=== PATIENT | female | born 1965 | race African-American/Black ===

== ENCOUNTER 2016-08-07 22:01 | Emergency (ER) | payer OTHER ==
[~2016-08-07] VITALS: Ht 162.6 cm; Wt 98.0 kg
[2016-08-07 22:09] VITALS: Ht 162.6 cm; Wt 98.0 kg
--- NOTE | 2016-08-07 22:46 | ERA ---
ER Documentation Chief Complaint Date/Time DATE: 08/07/16 TIME: 22:46 Chief Complaint abd pain x 2 weeks HPI The patient is a 50-year-old female, presenting to the ER because of epigastric and left upper quadrant abdominal pain intermittently for the last 2 weeks, 7 over 10, no aggravating or relieving factor. She denies similar symptoms previously, denies fever, chills, neck pain, chest pain, dyspnea, nausea, vomiting, diarrhea, constipation, dysuria. She smokes and drinks socially Past medical history: Hypertension Past surgical history: 5 ROS All systems reviewed and are negative except as per history of present illness. Medications Home Meds Active Scripts Tramadol HCl (Tramadol HCl) 50 Mg Tablet, 50 MG PO Q6 Y for PAIN, #20 TAB Prov:ADE IVY MD 08/08/16 Reported Medications Amlodipine Besylate* (Norvasc*) 5 Mg Tablet, 5 MG PO DAILY, TAB 08/07/16 Losartan Potassium* (Cozaar*) 100 Mg Tablet, 100 MG PO DAILY, #30 TAB 08/07/16 Potassium Citrate* (Potassium Citrate* ER) 10 Meq Tablet.sa, 10 MEQ PO DAILY, TAB.SA 08/07/16 Allergies Allergies: Coded Allergies: ibuprofen (Verified Allergy, Unknown, 08/07/16) latex (Verified Allergy, Unknown, 08/07/16) Physical Exam Vitals Vital Signs Date Time Temp Pulse Resp B/P Pulse Ox O2 Delivery O2 Flow Rate FiO2 08/08/16 00:31 98.5 20 138/95 100 08/07/16 22:09 98.2 98 20 154/100 100 Physical Exam Const: No acute distress. Head: Atraumatic. Eyes: Normal Conjunctiva. ENT: Normal External Ears, Nose and Mouth. Neck: Full range of motion. No meningismus. Resp: Clear to auscultation bilaterally. Cardio: Regular rate and rhythm, no murmurs. Abd: Soft, non distended, normal bowel sounds, umbilical hernia, moderate epigastric and left upper quadrant tenderness, no right lower quadrant , right upper quadrant, rigidity, rebound, CVA tenderness Skin: No petechiae or rashes. Back: No midline or flank tenderness. Ext: No cyanosis, or edema. Neur: Awake and alert. No focal deficit Psych: Normal Mood and Affect. Result Diagram: 08/07/16233308/07/164 Results 24 hrs Laboratory Tests Test 08/07/16 23:34 08/07/16 23:58 Alanine Aminotransferase (ALT/SGPT) 44IU/L Albumin 4.7g/dl Albumin/Globulin Ratio 1.17 Alkaline Phosphatase 82IU/L Anion Gap 21 Aspartate Amino Transf (AST/SGOT) 39IU/L Basophils # 0.110^3/ul Basophils % 0.7% Blood Urea Nitrogen 14mg/dl Calcium Level 9.7mg/dl Carbon Dioxide Level 23mmol/L Chloride Level 103mmol/L Creatinine 0.63mg/dl Direct Bilirubin 0.00mg/dl Eosinophils # 0.210^3/ul Eosinophils % 2.6% Globulin 4.00g/dl Glucose Level 93mg/dl Hematocrit 43.5% Hemoglobin 14.5g/dl Indirect Bilirubin 0.0mg/dl Lipase 175U/L Lymphocytes # 2.910^3/ul Lymphocytes % 39.0% Mean Corpuscular Hemoglobin 29.8pg Mean Corpuscular Hemoglobin Concent 33.3g/dl Mean Corpuscular Volume 89.3fl Mean Platelet Volume 10.3fl Monocytes # 0.310^3/ul Monocytes % 4.6% Neutrophils # 3.910^3/ul Neutrophils % 52.8% Nucleated Red Blood Cells # 0.010^3/ul Nucleated Red Blood Cells % 0.0/100WBC Platelet Count 54228^3/UL Potassium Level 4.3mmol/L Red Blood Count 4.8710^6/ul Red Cell Distribution Width 14.6% Sodium Level 143mmol/L Total Bilirubin 0.0mg/dl Total Protein 8.7g/dl White Blood Count 7.410^3/ul Bedside Urine Blood 2+ Bedside Urine Glucose (UA) Negative Bedside Urine Ketones (LAB) Negative Bedside Urine Leukocyte Esterase (L Negative Bedside Urine Nitrite (LAB) Negative Bedside Urine Protein (LAB) Negative Bedside Urine pH (LAB) 5.5 Current Medications Medications (Trade) Dose Ordered Sig/Mario Route PRN Reason Start Time Stop Time Status Last Admin Dose Admin Pantoprazole (Protonix Iv) 40 mg ONCE ONCE IV 08/07/16 23:30 08/07/16 23:31 DC 08/07/16 23:34 Procedures/[address], [place] [address] Radiology Main Line: [phone] DIAGNOSTIC IMAGING REPORT Patient: SEA MILLS : 1965 Age: 50 Sex: F [facility] #: [id number] [facility] [id number] DOS: 08/07/16 2304 Ordering MD: ADE IVY MD Location: E/R Room/Bed: PROCEDURE: CT ABDOMEN/PELVIS WITHOUT CONTRAST CLINICAL INDICATION: 50-year-old female with abdominal pain. TECHNIQUE: The study was performed utilizing a [employer] 64-slice CT scanner. Direct axial sections were obtained through the abdomen and pelvis without the use of intravenous contrast material. Sagittal and coronal reformations were obtained. Automated exposure control and iterative reconstruction techniques were utilized for this examination. The images were reviewed on a PACS workstation. CTD/vol = 21.5 mGy; Total Exam DLP = 1214.6 mGy-cm. COMPARISON: None. FINDINGS: The lung bases are unremarkable. There is no evidence for significant pleural effusion. The liver has a normal size and contour without focal areas of abnormal density. No intrahepatic nor extrahepatic biliary ductal dilatation is seen. The gallbladder demonstrates no wall thickening nor pericholecystic fluid. No biliary stones are evident. The pancreas is without areas of abnormal attenuation. The spleen is identified and has a normal size without abnormal density. The adrenal glands are unremarkable. The kidneys are without abnormal density. No hydroureteronephrosis nor nephroureterolithiasis is evident. The urinary bladder contains urine. There is a small umbilical hernia with an opening of 15 x 12 mm containing fat. There is mild retained stool without evidence for bowel obstruction. Multiple diverticula seen within the ascending and transverse colon without evidence for surrounding inflammatory changes. The appendix is visualized and is without abnormal thickening or surrounding inflammatory reaction. The uterus is mildly elongated with a bulbous appearance. There is no significant free fluid. The aortoiliac vessels are without aneurysmal dilatation. Degenerative changes are present throughout this spine. IMPRESSION: 1. Mild retained stool without obstruction. 2. Ascending and transverse colon diverticulosis. 3. No CT evidence for appendicitis. 4. Small umbilical hernia containing fat. 5. No CT evidence for obstructive uropathy or renal calculi. 6. Degenerative changes within the spine. .Cecilio Knox MD, MD Date Time Electronically viewed and signed by .Cecilio Knox MD, on 08/08/2016 01:29 .M/ CC: ADE IVY MD MEDICAL MAKING DECISION: The patient is a 50-year-old female, presenting with acute abdominal pain, most likely due to umbilical hernia. The differential diagnoses considered include but are not limited to incarcerated/strangulated umbilical hernia, cholelithiasis, cholecystitis, cystitis, pancreatitis, hepatitis, gastritis, peptic ulcer disease, gastric ulcer, appendicitis, diverticulitis, cholangitis, choledocholithiasis, partial small bowel obstruction. Departure Diagnosis: Primary Impression: Umbilical hernia Condition: Good Comments She was discharged with Ultram I discussed the findings with the patient. I advised the patient to follow-up with the primary physician in about 1-2 days, sooner if needed and return if any concern. ADE IVY MD Aug 07, 2016 22:46
[2016-08-07] MEDS ORDERED: POTA10TA18 PO (23:01)
[2016-08-07] MEDS ORDERED: LOSA100T47 PO (23:01)
[2016-08-07] MEDS ORDERED: AMLO5TAB4 PO (23:01)
[2016-08-07] MEDS ORDERED: PANTOPRAZOLE 40 MG INJ IV ONE (23:30)
[2016-08-07 23:58] LABS: URINE BLOOD (Dip) POC 2+ (NEGATIVE)
[2016-08-08 00:08] LABS: ALBUMIN 4.7 g/dl (3.3-4.9)
[2016-08-08 00:09] LABS: POTASSIUM 4.3 mmol/L (3.5-5.1)
[2016-08-08 00:11] LABS: ALBUMIN/GLOBULIN RATIO 1.17; CREATININE 0.63 mg/dl (0.44-1.00); TOTAL PROTEIN 8.7 g/dl (6.1-8.1)
[2016-08-08 00:12] LABS: CALCIUM 9.7 mg/dl (8.4-10.2)
[2016-08-08 00:31] VITALS: BP 138/95; RESP 20; TEMP 98.5
[2016-08-08 00:31] LABS: HEMATOCRIT 43.5 % (37.0-47.0); HEMOGLOBIN 14.5 g/dl (12.0-16.0); MEAN CORPUSCULAR HEMOGLOBIN 29.8 pg (29.0-33.0); MEAN CORPUSCULAR HGB CONC 33.3 g/dl (32.0-37.0); MEAN CORPUSCULAR VOLUME 89.3 fl (82.0-101.0); RED BLOOD COUNT 4.87 10^6/ul (4.20-5.40); UNCORRECTED WBC 7.4 10^3/ul (4.8-10.8); WHITE BLOOD COUNT 7.4 10^3/ul (4.8-10.8)
[2016-08-08 00:32] LABS: BASOPHIL # 0.1 10^3/ul (0.0-0.1); BASOPHILS % 0.7 % (0.0-2.0); EOSINOPHILS # 0.2 10^3/ul (0.0-0.5); EOSINOPHILS % 2.6 % (0.0-7.0); LYMPHOCYTES # 2.9 10^3/ul (0.8-2.9); MEAN PLATELET VOLUME 10.3 fl (7.4-10.4); MONOCYTE # 0.3 10^3/ul (0.3-0.9); MONOCYTES % 4.6 % (0.0-11.0); NEUTROPHIL # 3.9 10^3/ul (1.6-7.5); NEUTROPHILS % 52.8 % (39.0-77.0); PLATELET COUNT 276 10^3/UL (140-440); RED CELL DISTRIBUTION WIDTH 14.6 % (11.5-14.5)
--- NOTE | 2016-08-08 01:29 | RADRPT ---
PROCEDURE: CT ABDOMEN/PELVIS WITHOUT CONTRAST CLINICAL INDICATION: 50-year-old female with abdominal pain. TECHNIQUE: The study was performed utilizing a [employer] V[employer] 64-slice CT scanner. Direct axia l sections were obtained through the abdomen and pelvis without the use of intravenous contrast mate rial. Sagittal and coronal reformations were obtained. Automated exposure control and iterative hugh nstruction techniques were utilized for this examination. The images [facility] CTD/vol = 21.5 mGy; Total Exam DLP = 1214.6 mGy-cm. COMPARISON: None. FINDINGS: The lung bases are unremarkable. There is no evidence for significant pleural effusion. The liver has a normal size and contour without focal areas of abnormal density. No intrahepatic nor extrahepa tic biliary ductal dilatation is seen. The gallbladder demonstrates no wall thickening nor perichole cystic fluid. No biliary stones are evident. The pancreas is without areas of abnormal attenuation. The spleen is identified and has a normal size without abnormal density. The adrenal glands are unr emarkable. The kidneys are without abnormal density. No hydroureteronephrosis nor nephroureterolithi asis is evident. The urinary bladder contains urine. There is a small umbilical hernia with an openi ng of 15 x 12 mm containing fat. There is mild retained stool without evidence for bowel obstructio n. Multiple diverticula seen within the ascending and transverse colon without evidence for surroun ding inflammatory changes. The appendix is visualized and is without abnormal thickening or surrounding inflammatory reaction. The uterus is mildly elongated with a bulbous appearance. There is no significant free fluid. The aortoiliac vessels are without aneurysmal dilatation. Degenerative changes are present throughout this spine. IMPRESSION: 1. Mild retained stool without obstruction. 2. Ascending and transverse colon diverticulosis. 3. No CT evidence for appendicitis. 4. Small umbilical hernia containing fat. 5. No CT evidence for obstructive uropathy or renal calculi. 6. Degenerative changes within the spine. .Cecilio Knox MD, MD Date Time Electronically viewed and signed by .Cecilio Knox MD, MD on 08/08/2016 01:29 .M/
[2016-08-08] MEDS ORDERED: TRAM50TA2 PO (01:50)
== END 2016-08-08 01:50 | disposition home or self-care (01) ==
LOC: E/R 22:01
DX: K42.9 Umbilical hernia without obstruction or gangrene (principal); I10 Essential (primary) hypertension; F17.210 Nicotine dependence, cigarettes, uncomplicated
CPT/HCPCS: 36415; 74176; 80053; 81003; 83690; 85025; 96374; 99285; C9113

== ENCOUNTER 2016-11-25 16:34 | Emergency (ER) | payer OTHER ==
[~2016-11-25] VITALS: Ht 167.6 cm; Wt 88.5 kg
[~2016-11-25 16:34] MED LIST: AMLO5TAB4 PO; LOSA100T47 PO; POTA10TA18 PO; TRAM50TA2 PO
[2016-11-25 16:55] VITALS: Ht 167.6 cm; Wt 88.5 kg
--- NOTE | 2016-11-25 17:51 | ERA ---
ER Documentation Chief Complaint Date/Time DATE: 11/25/16 TIME: 17:51 Chief Complaint Chest discomfort HPI The patient is a 50-year-old female, presenting to the ER because of left sided chest discomfort intermittently for 1 week, worse with movement. She denies any chest discomfort at this time. She was seen by her physician today. She denies fever, chills, headache, neck pain, chest pain with exertion of vomiting or diaphoresis, abdominal pain, vomiting, dysuria, diarrhea, constipation. She smokes half a pack a day, drinks socially Past medical history: Hypertension, hiatal hernia Past surgical history: 5 ROS All systems reviewed and are negative except as per history of present illness. Medications Home Meds Active Scripts Tramadol HCl (Tramadol HCl) 50 Mg Tablet, 50 MG PO Q6 Y for PAIN, #20 TAB Prov:ADE IVY MD 08/08/16 Reported Medications Amlodipine Besylate* (Norvasc*) 5 Mg Tablet, 5 MG PO DAILY, TAB 08/07/16 Losartan Potassium* (Cozaar*) 100 Mg Tablet, 100 MG PO DAILY, #30 TAB 08/07/16 Potassium Citrate* (Potassium Citrate* ER) 10 Meq Tablet.sa, 10 MEQ PO DAILY, TAB.SA 08/07/16 Allergies Allergies: Coded Allergies: ibuprofen (Verified Allergy, Unknown, 08/07/16) latex (Verified Allergy, Unknown, 08/07/16) PMhx/Soc History of Surgery: Yes (c section x5) Anesthesia Reaction: No Hx Neurological Disorder: No Hx Respiratory Disorders: No Hx Cardiac Disorders: Yes (htn) Hx Psychiatric Problems: No Hx Miscellaneous Medical Probl: No Hx Alcohol Use: Yes (occasionally) Hx Substance Use: No Hx Tobacco Use: Yes Physical Exam Vitals Vital Signs Date Time Temp Pulse Resp B/P Pulse Ox O2 Delivery O2 Flow Rate FiO2 11/25/16 18:09 Nasal Cannula 11/25/16 16:55 98.0 96 18 140/108 98 Physical Exam Const: No acute distress. Head: Atraumatic. Eyes: Normal Conjunctiva. ENT: Normal External Ears, Nose and Mouth. Neck: Full range of motion. No meningismus. Resp: Clear to auscultation bilaterally. Cardio: Regular rate and rhythm, no murmurs. Abd: Soft, non distended, normal bowel sounds, non tender. Skin: No petechiae or rashes. Back: No midline or flank tenderness. Ext: No cyanosis, or edema. Neur: Awake and alert. No focal deficit Psych: Normal Mood and Affect. Result Diagram: 11/25/16181911/25/161819 Results 24 hrs Laboratory Tests Test 11/25/16 18:20 White Blood Count 9.510^3/ul Red Blood Count 4.6210^6/ul Hemoglobin 13.5g/dl Hematocrit 41.4% Mean Corpuscular Volume 89.6fl Mean Corpuscular Hemoglobin 29.2pg Mean Corpuscular Hemoglobin Concent 32.6g/dl Red Cell Distribution Width 14.4% Platelet Count 11293^3/UL Mean Platelet Volume 10.2fl Neutrophils % 68.9% Lymphocytes % 24.7% Monocytes % 5.3% Eosinophils % 0.5% Basophils % 0.3% Nucleated Red Blood Cells % 0.0/100WBC Neutrophils # 6.510^3/ul Lymphocytes # 2.310^3/ul Monocytes # 0.510^3/ul Eosinophils # 0.110^3/ul Basophils # 0.010^3/ul Nucleated Red Blood Cells # 0.010^3/ul Prothrombin Time 12.6Sec Prothrombin Time Ratio 1.0 INR International Normalized Ratio 0.94 Activated Partial Thromboplast Time 27.3Sec D-Dimer 324.57ng/ml D-Dimer Comment Sodium Level 138mmol/L Potassium Level 3.4mmol/L Chloride Level 98mmol/L Carbon Dioxide Level 27mmol/L Anion Gap 16 Blood Urea Nitrogen 7mg/dl Creatinine 0.51mg/dl Glucose Level 127mg/dl Calcium Level 10.3mg/dl Troponin I < 0.012ng/ml Current Medications Medications (Trade) Dose Ordered Sig/Mario Route PRN Reason Start Time Stop Time Status Last Admin Dose Admin Potassium Chloride (Klor-Con 20) 20 meq ONCE STAT PO 11/25/16 19:36 11/25/16 19:39 DC Procedures/[place] [id number] Radiology Main Line: [phone] DIAGNOSTIC IMAGING REPORT Patient: SEA MILLS : 1965 Age: 50 Sex: F MR #: [id number] DOS: 11/25/16 1757 Ordering MD: ADE IVY MD Location: E/R Room/Bed: PROCEDURE: Chest x-ray CLINICAL INDICATION: Chest pain TECHNIQUE: Chest single view COMPARISON: None FINDINGS: The heart is normal in size. The pulmonary vessels are normal in caliber. The lungs are clear. The costophrenic angles are sharp. The visualized bony thorax is unremarkable. IMPRESSION: No acute cardiopulmonary disease. RPTAT: HH .Genaro Zuniga MD, MD Date Time Electronically viewed and signed by .Genaro Zuniga MD, MD on 11/25/2016 18:20 .W/ CC: ADE IVY MD EKG: Read by emergency physician Rate/Rhythm: Normal Sinus Rhythm 72 beats/min QRS, ST, T-waves: No ST elevation, no T inversion, sinus arrhythmia, PVC Impression: Abnormal EKG MEDICAL MAKING DECISION: The patient is a 50-year-old female, presenting with acute chest pain however denied any chest pain now, acute hypokalemia. She was treated with potassium chloride 20 mg 1 p.o. with good response The differential diagnoses considered include but are not limited to acute coronary syndrome, acute myocardial infarction, pericarditis, pulmonary embolism , aortic dissection, pneumonia, pleural effusion, pneumothorax, GERD, chest wall pain. I do not suspect ACS in the patient Departure Diagnosis: Primary Impression: Chest pain Additional Impression: Hypokalemia Condition: Good Comments I discussed the findings with the patient. I advised the patient to follow-up with the primary physician in about 1-2 days, sooner if needed and return if any concern. ADE IVY MD November 25, 2016 17:51
--- NOTE | 2016-11-25 18:20 | RADRPT ---
PROCEDURE: Chest x-ray CLINICAL INDICATION: Chest pain TECHNIQUE: Chest single view COMPARISON: None FINDINGS: The heart is normal in size. The pulmonary vessels are normal in caliber. The lungs are clear. Th e costophrenic angles are sharp. The visualized bony thorax is unremarkable. IMPRESSION: No acute cardiopulmonary disease. RPTAT: HH .Genaro Zuniga MD, Date Time Electronically viewed and signed by .Genaro Zuniga MD, MD on 11/25/2016 18:20 .W/
[2016-11-25 18:31] LABS: ADD SCAN DIFF NO
[2016-11-25 18:35] LABS: BASOPHILS % 0.3 % (0.0-2.0); EOSINOPHILS # 0.1 10^3/ul (0.0-0.5); EOSINOPHILS % 0.5 % (0.0-7.0); HEMATOCRIT 41.4 % (37.0-47.0); HEMOGLOBIN 13.5 g/dl (12.0-16.0); LYMPHOCYTES # 2.3 10^3/ul (0.8-2.9); LYMPHOCYTES % 24.7 % (15.0-51.0); MEAN CORPUSCULAR HEMOGLOBIN 29.2 pg (29.0-33.0); MEAN CORPUSCULAR HGB CONC 32.6 g/dl (32.0-37.0); MEAN CORPUSCULAR VOLUME 89.6 fl (82.0-101.0); MEAN PLATELET VOLUME 10.2 fl (7.4-10.4); MONOCYTE # 0.5 10^3/ul (0.3-0.9); MONOCYTES % 5.3 % (0.0-11.0); NEUTROPHIL # 6.5 10^3/ul (1.6-7.5); NEUTROPHILS % 68.9 % (39.0-77.0); PLATELET COUNT 281 10^3/UL (140-415); RED BLOOD COUNT 4.62 10^6/ul (4.20-5.40); RED CELL DISTRIBUTION WIDTH 14.4 % (11.5-14.5); WHITE BLOOD COUNT 9.5 10^3/ul (4.8-10.8)
[2016-11-25 19:02] LABS: CHLORIDE 98 mmol/L (97-110); SODIUM 138 mmol/L (135-144)
[2016-11-25 19:03] LABS: POTASSIUM 3.4 mmol/L (3.5-5.1)
[2016-11-25 19:04] LABS: INR 0.94; PROTIME 12.6 Sec (12.2-14.2)
[2016-11-25 19:05] LABS: CREATININE 0.51 mg/dl (0.44-1.00); PARTIAL THROMBOPLASTIN TIME 27.3 Sec (25.0-35.0)
[2016-11-25 19:06] LABS: ANION GAP 16 (8-16); BLOOD UREA NITROGEN 7 mg/dl (7-20); CALCIUM 10.3 mg/dl (8.4-10.2); CARBON DIOXIDE 27 mmol/L (21-31); GLUCOSE 127 mg/dl (70-220)
[2016-11-25 19:08] LABS: D-DIMER 324.57 ng/ml (<460)
[2016-11-25 19:26] LABS: TROPONIN-I < 0.012 ng/ml (0.00-0.12)
[2016-11-25] MEDS ORDERED: POTASSIUM CHLORIDE (SR) 20 MEQ TAB PO STA (19:36)
[2016-11-25 19:51] VITALS: BP 150/90; PULSE 75; RESP 22; TEMP 98.6
== END 2016-11-25 19:53 | disposition home or self-care (01) ==
LOC: E/R 16:34
DX: R07.89 Other chest pain (principal); E87.6 Hypokalemia; I10 Essential (primary) hypertension; Z87.891 Personal history of nicotine dependence
CPT/HCPCS: 36415; 71010; 80048; 84484; 85025; 85378; 85610; 85730; 93005

== ENCOUNTER 2019-01-03 17:16 | Inpatient (IN) | payer OTHER ==
[~2019-01-03] VITALS: Ht 170.2 cm; Wt 95.5 kg
[~2019-01-03 17:16] MED LIST changes: +LOSA100T3 PO; -LOSA100T47 PO
[2019-01-03 17:25] VITALS: Ht 170.2 cm; Wt 95.5 kg
[2019-01-03] MEDS ORDERED: morphine 4 MG/ML VIAL IV STA (17:28)
[2019-01-03] MEDS ORDERED: SOD CHLORIDE 0.9% 500 ML IV STA (17:28)
[2019-01-03] MEDS ORDERED: ONDANSETRON 4 MG INJ IV STA (17:28)
--- NOTE | 2019-01-03 17:32 | ERD ---
ER Documentation Chief Complaint Chief Complaint SEVERE 10/10 LEFT KNEE PAIN AFTER FALLING OFF OF [employer] TODAY HPI 53-year-old woman brought in by EMS with pneumatic splint to the right lower extremity complaining of right knee pain after falling off of the scooter. Episode was witnessed and she did not lose consciousness and recalls the entire incident. She states she fell onto her right knee and could not ambulate after the fall. Patient denies head or neck injury, no chest pain or shortness of breath, no paresis or paresthesias. Patient was transported here without further complications. ROS All systems reviewed and are negative except as per history of present illness. Medications Home Meds Active Scripts Tramadol HCl (Tramadol HCl) 50 Mg Tablet, 50 MG PO Q6 PRN for PAIN, #20 TAB Prov:ADE IVY MD 08/08/16 Reported Medications Amlodipine Besylate* (Norvasc*) 5 Mg Tablet, 5 MG PO DAILY, TAB 08/07/16 Losartan Potassium* (Cozaar*) 100 Mg Tablet, 100 MG PO DAILY, #30 TAB 08/07/16 Potassium Citrate* (Potassium Citrate* ER) 10 Meq Tablet.sa, 10 MEQ PO DAILY, TAB.SA 08/07/16 Allergies Allergies: Coded Allergies: ARB-Angiotensin Receptor Antagonist (Verified Allergy, Severe, ANAPYLAXIS, 01/03/19) ibuprofen (Verified Allergy, Unknown, 08/07/16) latex (Verified Allergy, Unknown, 08/07/16) PMhx/Soc Hypertension, obesity History of Surgery: Yes (c section x5) Anesthesia Reaction: No Hx Neurological Disorder: No Hx Respiratory Disorders: No Hx Cardiac Disorders: Yes (htn) Hx Psychiatric Problems: No Hx Miscellaneous Medical Probl: Yes (HERNIA) Hx Alcohol Use: Yes (occasionally) Hx Substance Use: No Hx Tobacco Use: Yes FmHx Family History: No diabetes Physical Exam Vitals Vital Signs Date Temp Pulse Resp B/P (MAP) Pulse Ox O2 O2 Flow FiO2 Time Delivery Rate 01/03/19 98 18 123/76 99 Room Air 18:37 (92) 01/03/19 98.6 95 16 137/91 95 17:25 (106) Physical Exam GENERAL: Well-developed, well-nourished, well-hydrated, in no apparent distress, looks nontoxic in appearance HEENT: Moist mucous membranes, pink conjunctiva, no cervical spine tenderness or step-off deformities, no goiter, no jaundice or icterus, extraocular movements intact without pain. CARDIAC: Regular rate and rhythm, no murmurs rubs or gallops LUNGS: Clear bilaterally no wheezing crackles or stridor SKIN: Warm and dry to touch, no abrasions, contusions, or hematomas, no lacerations, no ecchymosis, no target lesions, and without ulcers EXTREMITIES: No clubbing cyanosis or edema, calves are bilaterally symmetrical, no Homans sign, no popliteal cord sign. Distal pulses equal and bilateral Result Diagram: 01/03/19 1740 01/03/191739 Results 24 hrs Laboratory Tests Test 01/03/19 17:40 White Blood Count 11.3 10^3/ul Red Blood Count 4.89 10^6/ul Hemoglobin 13.8 g/dl Hematocrit 42.5 % Mean Corpuscular Volume 86.9 fl Mean Corpuscular Hemoglobin 28.2 pg Mean Corpuscular Hemoglobin Concent 32.5 g/dl Red Cell Distribution Width 14.5 % Platelet Count 337 10^3/UL Mean Platelet Volume 10.3 fl Immature Granulocytes % 0.400 % Neutrophils % 60.4 % Lymphocytes % 31.2 % Monocytes % 5.9 % Eosinophils % 1.5 % Basophils % 0.6 % Nucleated Red Blood Cells % 0.0 /100WBC Immature Granulocytes # 0.040 10^3/ul Neutrophils # 6.8 10^3/ul Lymphocytes # 3.5 10^3/ul Monocytes # 0.7 10^3/ul Eosinophils # 0.2 10^3/ul Basophils # 0.1 10^3/ul Nucleated Red Blood Cells # 0.0 10^3/ul Prothrombin Time 12.1 Sec Prothrombin Time Ratio 0.9 INR International Normalized Ratio 0.89 Activated Partial Thromboplast Time 27.2 Sec Sodium Level 142 mmol/L Potassium Level 3.9 mmol/L Chloride Level 105 mmol/L Carbon Dioxide Level 23 mmol/L Anion Gap 14 Blood Urea Nitrogen 13 mg/dl Creatinine 0.72 mg/dl Est Glomerular Filtrat Rate mL/min > 60 mL/min Glucose Level 124 mg/dl Calcium Level 10.5 mg/dl Current Medications Medications Dose Sig/Mario Start Time Status Last (Trade) Ordered Route PRN Stop Time Admin Dose Reason Admin Sodium 500 ml @ Q1H STAT 01/03/19 DC 01/03/19 Chloride 500 mls/hr IV 17:28 17:39 01/03/19 18:27 Morphine 4 mg ONCE STAT 01/03/19 DC 01/03/19 Sulfate IV 17:28 17:39 (morphine) 01/03/19 17:30 Ondansetron 4 mg ONCE STAT 01/03/19 DC 01/03/19 HCl (Zofran IV 17:28 17:39 Inj) 01/03/19 17:30 1 mg ONCE STAT 01/03/19 DC 01/03/19 Hydromorphone IV 18:00 18:28 HCl 01/03/19 18:01 (Dilaudid) Procedures/MDM IV line was established patient was placed on devulcanizer loader rhythm strip revealed a sinus rhythm at about 80 bpm with upright P and T waves. Patient was afebrile I administered 500 cc normal saline IV, morphine 4 mg IV, Zofran 4 mg IV. Patient also received hydromorphone 1 mg IV x1 for continued pain X-ray right knee 3V Interpreted by me: Bones: Comminuted displaced lateral tibial plateau fracture. Joints: No dislocation Foreign body: None EKG performed, read by me revealed a normal sinus rhythm 89 bpm, normal axis, narrow QRS complex, no concerning ST elevations or depressions noted. Patient was placed in a knee immobilizer to the right lower extremity for comfort and supportive measures. Splint Assessment: Neurovascularly intact post splint placement with good fit. I spoke to Dr. Hughes orthopedic surgeon optical effects layout person regarding patient's presentation, symptomatology, x-ray findings. Recommended admission for surgical consultation and evaluation. CBC and electrolytes are unremarkable, coagulation profile normal. Patient will be admitted to [facility] for continued medical management and orthopedic consultation Departure Diagnosis: Primary Impression: Tibial plateau fracture, right Encounter type: initial encounter Fracture type: closed Qualified Codes: S82.141A - Displaced bicondylar fracture of right tibia, initial encounter for closed fracture Condition: RADHA Robbins MD Jan 03, 2019 17:32
[2019-01-03] MEDS ORDERED: HYDROmorphONE 2 MG/ML SYG IV STA (18:00)
[2019-01-03] MEDS ORDERED: KETOROLAC 15 MG INJ IV STA (19:21)
[2019-01-03] MEDS ORDERED: NACL 0.9% 3 ML SYG IV SCH (19:30)
[2019-01-03] MEDS ORDERED: ACETAMINOPHEN 325 MG TAB PO PRN (19:30)
[2019-01-03] MEDS ORDERED: morphine 2 MG INJ IV PRN (19:30)
[2019-01-03] MEDS ORDERED: ONDANSETRON 4 MG INJ IV PRN (19:30)
[2019-01-03] MEDS ORDERED: BISACODYL 10 MG SUPP PR PRN (19:30)
[2019-01-03] MEDS ORDERED: hydrALAzine 20 MG INJ IV PRN (19:30)
[2019-01-03 20:53] VITALS: BP 144/89; PULSE 96; RESP 18
[2019-01-03] MEDS: HYDROCODONE/APAP (5/325) TAB PO PRN (22:24)
[2019-01-03] MEDS: NICOTINE (21 MG/24 HR) PATCH TRANSDERM SCH (22:30)
[2019-01-04 01:22] VITALS: BP 139/85; PULSE 94; RESP 18
[2019-01-04] MEDS: HYDROmorphONE 1 MG/ML SYG IV PRN ×6 (03:41→23:05)
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
[2019-01-04 07:54] VITALS: BP 141/92; PULSE 82; RESP 19
[2019-01-04] MEDS: NICOTINE (21 MG/24 HR) PATCH TRANSDERM SCH (08:40)
[2019-01-04] MEDS: HYDROCODONE/APAP (5/325) TAB PO PRN (08:40)
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
[2019-01-04] MEDS ORDERED: hydrALAzine 20 MG INJ IV PRN (12:00)
[2019-01-04] MEDS: AMLODIPINE 5 MG TAB PO SCH (12:01)
[2019-01-04] MEDS: OXYCODONE/ACETAMINOPHEN (5/325) TAB PO PRN ×2 (12:01→15:53)
[2019-01-04] MEDS: ENOXAPARIN 40 MG/0.4 ML SYG SC SCH (12:01)
[2019-01-04 15:23] VITALS: BP 138/87; PULSE 76; RESP 19
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
--- NOTE | 2019-01-04 17:06 | RADRPT ---
Echocardiogram Report Patient Name: SEA MILLSPatient ID: [id number] : 1965 (53y 1m)Study Date: 01/04/2019 8:19:09 AM Gender: FAccession #: [id number] Tech: Cali Hsu [facility] Location: [address] Ref.Physician: RADHA GONZALEZ Height(Cm): BSA: Weight(Kg): Quality: AdequateOrder Physician: RADHA GONZALEZ Account #: Procedures: Echocardiographic Report: Transthoracic echocardiogram with complete 2D, M-Mode, and doppler examination. Indications: Pre-op. Measurements: 2D/M Mode Doppler Measurement Value Normal Range Measurement Value Normal Range LVIDd 2D 4.2 [ 3.8 - 5.2 ] cm AV Peak Jeffrey 1.1 [ 100.0 - 170.0 ] cm/sec LVIDs 2D 3.0 [ 2.2 - 3.5 ] cm AV Peak PG 5.0 [ 2.0 - 9.0 ] mmHg LVPWd 2D 0.9 [ 0.6 - 0.9 ] cm LVOT Peak Jeffrey 0.9 [ 70.0 - 110.0 ] cm/sec IVSd 2D 1.6 [ 0.6 - 0.9 ] cm LVOT Peak PG 3.0 [ 2.0 - 6.0 ] mmHg AoR Diam 2D 3.0 [ 2.3 - 3.1 ] cm MV E Peak Jeffrey 0.8 [ 60.0 - 130.0 ] cm/sec EDV 2D 79.9 [ 46.0 - 106.0 ] ml MV A Peak Jeffrey 0.7 [ 100.0 - 120.0 ] cm/sec ESV 2D 35.3 [ 14.0 - 42.0 ] ml MV E/A 1.1 [ 0.8 - 1.5 ] ratio EF 2D 55.8 [ 54.0 - 74.0 ] percent MV Decel Time 232 [ 104 - 258 ] msec LA Dimen 2D 3.1 [ 2.7 - 3.8 ] cm Lat E` Jeffrey 0.1 [ 10.0 - 15.0 ] cm/sec Lateral E/E` 11.6 [ 1.0 - 2.0 ] ratio Med E` Jeffrey 0.1 cm/sec MV E/A 1.1 [ 0.8 - 1.5 ] ratio TR Peak Jeffrey 2.6 [ 100.0 - 280.0 ] cm/sec TR Peak PG 27.0 mmHg RVSP 37.0 [ 10.0 - 36.0 ] mmHg Findings: Left Ventricle: Normal left ventricular systolic function. Normal left ventricular cavity size. Sigmoid septum. Ejection fraction is visually estimated at 55 %. Tissue Doppler/Mitral Doppler indices are consistent with impaired relaxation (Stage I diastolic dysfunction). Right Ventricle: Normal right ventricular size. Normal right ventricular systolic function. Left Atrium: The left atrium is normal in size. Right Atrium: The right atrium is normal in size. Mitral Valve: Mild mitral leaflet calcification. Mild mitral annular calcification. Trace mitral regurgitation. Aortic Valve: No significant aortic stenosis or insufficiency. Aortic cusps appear mildly calcified. Tricuspid Valve: Normal appearance of the tricuspid valve. The estimated Peak RVSP is 37 mmHg. There is mild tricuspid regurgitation. Pericardium: Normal pericardium with no significant pericardial effusion. There is an anterior echo free space consistent with epicardial fat pad. Left pleural effusion seen. Aorta: Normal aortic root. IVC: Normal size with poor respiratory collapse consistent with elevated right atrial pressure. Conclusions: Normal left ventricular systolic function. Normal left ventricular cavity size. Sigmoid septum. Ejection fraction is visually estimated at 55 %. Tissue Doppler/Mitral Doppler indices are consistent with impaired relaxation (Stage I diastolic dysfunction). Mild mitral leaflet calcification. Mild mitral annular calcification. Trace mitral regurgitation. No significant aortic stenosis or insufficiency. Aortic cusps appear mildly calcified. Normal appearance of the tricuspid valve. The estimated Peak RVSP is 37 mmHg. There is mild tricuspid regurgitation. Electronically Signed By: Rhys Cade 2019-01-04 17:05:54 PDT
[2019-01-04] MEDS ORDERED: traZODone 50 MG TAB PO ONE (20:00)
[2019-01-04] MEDS: ATORVASTATIN 10 MG TAB PO SCH (20:11)
[2019-01-04] MEDS: OXYCODONE/ACETAMINOPHEN (10/325) TAB PO PRN (20:11)
[2019-01-04 20:21] VITALS: BP 155/98; PULSE 99; RESP 19
[2019-01-05] MEDS: OXYCODONE/ACETAMINOPHEN (10/325) TAB PO PRN ×4 (01:50→20:49)
[2019-01-05 02:21] VITALS: BP 138/75; PULSE 109; RESP 18
[2019-01-05] MEDS: HYDROmorphONE 1 MG/ML SYG IV PRN ×3 (05:19→18:45)
[2019-01-05 07:28] VITALS: BP 141/68; PULSE 78; RESP 19
[2019-01-05] MEDS: AMLODIPINE 5 MG TAB PO SCH (09:00)
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
[2019-01-05] MEDS: NICOTINE (21 MG/24 HR) PATCH TRANSDERM SCH (09:45)
[2019-01-05] MEDS: ENOXAPARIN 40 MG/0.4 ML SYG SC SCH (12:30)
[2019-01-05 15:06] VITALS: BP 130/78; PULSE 97; RESP 19
--- NOTE | 2019-01-05 18:05 | PREAC ---
Date/Time of Note Date/Time of Note DATE: 01/05/19 TIME: 18:04 Anesthesia Eval and Record Evaluation Time Pre-Procedure Interview DATE: 01/05/19 TIME: 18:04 Age 53 Sex female NPO: 8 hrs Preoperative diagnosis TIBIAL PLATEAU FRACTURE , RIGHT KNEE Planned procedure ORIF TIBIAL PLATEAU FRACTURE , RIGHT KNEE Past Medical History Past Medical History: Includes Cardio: HTN, Dyslipidemia Pulm: COPD GI: Obesity Surgery & Anesthesia Issues No known issue Meds Anticoagulation: No Beta Hay within 24 hr: No Reason Beta Hay not given: Pt. not on B-Hay, Bradycarida Active Scripts Tramadol HCl (Tramadol HCl) 50 Mg Tablet, 50 MG PO Q6 PRN for PAIN, #20 TAB Prov:ADE IVY MD 08/08/16 Reported Medications Amlodipine Besylate* (Norvasc*) 5 Mg Tablet, 5 MG PO DAILY, TAB 08/07/16 Potassium Citrate* (Potassium Citrate* ER) 10 Meq Tablet.sa, 10 MEQ PO DAILY, TAB.SA 08/07/16 Discontinued Reported Medications Losartan Potassium* (Cozaar*) 100 Mg Tablet, 100 MG PO DAILY, #30 TAB 08/07/16 Current Medications IV Flush (NS 3 ml) 3 ml PER PROTOCOL IV ; Start 01/03/19 at 19:30 Ondansetron HCl (Zofran Inj) 4 mg Q6H PRN IV NAUSEA/VOMITING; Start 01/03/19 at 19:30 Acetaminophen (Tylenol Tab) 650 mg Q6H PRN PO .PAIN 1-3 OR TEMP; Start 01/03/19 at 19:30 Bisacodyl (Dulcolax Supp) 10 mg DAILY PRN [place] .CONSTIPATION; Start 01/03/19 at 19:30 Nicotine (Nicoderm 21 Mg/ 24hr) 1 patch DAILY TRANSDERM Last administered on 01/05/19at 09:45; Admin Dose 1 PATCH; Start 01/03/19 at 22:30 Hydromorphone HCl (Dilaudid) 1 mg Q3H PRN IV SEVERE PAIN LEVEL 7-10 Last administered on 01/05/19at 12:42; Admin Dose 1 MG; Start 01/04/19 at 02:00 Atorvastatin Calcium (Lipitor) 10 mg HS PO Last administered on 01/04/19at 20:11; Admin Dose 10 MG; Start 01/04/19 at 21:00 Amlodipine Besylate (Norvasc) 5 mg DAILY PO Last administered on 01/04/19at 12:01; Admin Dose 5 MG; Start 01/04/19 at 12:00 Hydralazine HCl (Apresoline) 10 mg Q6H PRN IV sbp>160; Start 01/04/19 at 12:00 Enoxaparin Sodium (Lovenox) 40 mg DAILY SC Last administered on 01/05/19at 12:30; Admin Dose 40 MG; Start 01/04/19 at 12:00 Oxycodone/ Acetaminophen (Endocet (10/ 325)) 1 tab Q4H PRN PO MODERATE PAIN LEVEL 4-6 Last administered on 01/05/19at 14:57; Admin Dose 1 TAB; Start 01/04/19 at 20:00 Sodium Chloride 1,000 ml @ 50 mls/hr Q20H IV ; Start 01/06/19 at 00:00 Meds reviewed: Yes Allergies Coded Allergies: ARB-Angiotensin Receptor Antagonist (Verified Allergy, Severe, ANAPYLAXIS, 01/03/19) ibuprofen (Verified Allergy, Unknown, 08/07/16) latex (Verified Allergy, Unknown, 08/07/16) Allergies Reviewed: Yes Labs/Studies Labs Reviewed: Reviewed by anesthesiologist Result Diagram: 01/05/198 01/05/19427 Laboratory Tests 01/05/19 04:28 test: N/A Studies: ECG (sr), CXR (Elevated right hemidiaphragm. Heart within normal limits in size. No evidence of pulmonary vascular congestion acute lung consolidation pleural effusions and pneumothorax.), 2D Echo (EF 55%) Pre-procedure Exam Last vitals Vital Signs Date Temp Pulse Resp B/P (MAP) Pulse Ox O2 O2 Flow FiO2 Time Delivery Rate 01/05/19 97.2 97 19 130/78 96 15:06 (95) 01/05/19 Room Air 07:28 Airway: Adequate mouth opening Mallampati: Mallampati II Teeth: Normal Lung: Normal Heart: Normal ASA Physical Status ASA physical status: 3 Emergency: None Planned Anesthetic General/MAC: ETT Pre-operative Attestations Prior to commencing anesthesia and surgery, the patient was re-evaluated, there was verification of: *The patient's identity *The results of appropriate recent lab work and preoperative vital signs *The above evaluation not changing prior to induction *Anesthetic plan, risk benefits, alternative and complications discussed with patient/family; questions answered; patient/family understands, accepts and wishes to proceed. ROLDAN CISSE Jan 05, 2019 18:05
[2019-01-05 19:25] VITALS: BP 133/82; PULSE 109; RESP 18
[2019-01-05] MEDS: ATORVASTATIN 10 MG TAB PO SCH (20:49)
[2019-01-06] VITALS (15 sets, daily range): BP systolic 107–153; BP diastolic 67–95; PULSE 98–108; RESP 15–21
[2019-01-06] MEDS: HYDROmorphONE 1 MG/ML SYG IV PRN ×4 (00:36→11:55)
--- NOTE | 2019-01-06 06:31 | PN ---
DATE: 01/05/2019 Medically cleared for surgery. Scheduled for open reduction and internal fixation of the tibial plat eau fracture of the right knee around 2:00 p.m. on 01/06/2019. Dictated By: ANGÉLICA CRUZ/NTS Conf#: [id number] DID#: [id number] CC: LALA PEREZ MD;*EndCC*
[2019-01-06] MEDS: ENOXAPARIN 40 MG/0.4 ML SYG SC SCH (07:43)
[2019-01-06] MEDS: AMLODIPINE 5 MG TAB PO SCH (08:24)
[2019-01-06] MEDS: NICOTINE (21 MG/24 HR) PATCH TRANSDERM SCH (08:24)
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
[2019-01-06] MEDS ORDERED: POLYMYXIN/BACITRACIN 1L IRRIG ONE (14:54)
--- NOTE | 2019-01-06 15:22 | HPN ---
Date/Time of Note Date/Time of Note DATE: 01/06/19 TIME: 15:22 Interval H&P Admission Note Pt. seen H&P reviewed: No system changes MADHURI ESQUIVEL MD Jan 06, 2019 15:22
--- NOTE | 2019-01-06 15:23 | PREAC ---
Date/Time of Note Date/Time of Note DATE: 01/06/19 TIME: 15:21 Anesthesia Eval and Record Evaluation Time Pre-Procedure Interview DATE: 01/06/19 TIME: 15:21 Age 53 Sex female NPO: 8 hrs Preoperative diagnosis R. Knee Fx Planned procedure ORIF R. Knee Past Medical History Past Medical History: Includes Cardio: HTN Pulm: Smoking Hx GI: Obesity Surgery & Anesthesia Issues No known issue Meds Anticoagulation: No Beta Hay within 24 hr: No Reason Beta Hay not given: Pt. not on B-Hay Active Scripts Tramadol HCl (Tramadol HCl) 50 Mg Tablet, 50 MG PO Q6 PRN for PAIN, #20 TAB Prov:ADE IVY MD 08/08/16 Reported Medications Amlodipine Besylate* (Norvasc*) 5 Mg Tablet, 5 MG PO DAILY, TAB 08/07/16 Potassium Citrate* (Potassium Citrate* ER) 10 Meq Tablet.sa, 10 MEQ PO DAILY, TAB.SA 08/07/16 Discontinued Reported Medications Losartan Potassium* (Cozaar*) 100 Mg Tablet, 100 MG PO DAILY, #30 TAB 08/07/16 Current Medications IV Flush (NS 3 ml) 3 ml PER PROTOCOL IV ; Start 01/03/19 at 19:30 Ondansetron HCl (Zofran Inj) 4 mg Q6H PRN IV NAUSEA/VOMITING; Start 01/03/19 at 19:30 Acetaminophen (Tylenol Tab) 650 mg Q6H PRN PO .PAIN 1-3 OR TEMP; Start 01/03/19 at 19:30 Bisacodyl (Dulcolax Supp) 10 mg DAILY PRN [place] .CONSTIPATION; Start 01/03/19 at 19:30 Nicotine (Nicoderm 21 Mg/ 24hr) 1 patch DAILY TRANSDERM Last administered on 01/06/19at 08:24; Admin Dose 1 PATCH; Start 01/03/19 at 22:30 Hydromorphone HCl (Dilaudid) 1 mg Q3H PRN IV SEVERE PAIN LEVEL 7-10 Last administered on 01/06/19at 11:55; Admin Dose 1 MG; Start 01/04/19 at 02:00 Atorvastatin Calcium (Lipitor) 10 mg HS PO Last administered on 01/05/19at 20:49; Admin Dose 10 MG; Start 01/04/19 at 21:00 Amlodipine Besylate (Norvasc) 5 mg DAILY PO Last administered on 01/06/19at 08:24; Admin Dose 5 MG; Start 01/04/19 at 12:00 Hydralazine HCl (Apresoline) 10 mg Q6H PRN IV sbp>160; Start 01/04/19 at 12:00 Enoxaparin Sodium (Lovenox) 40 mg DAILY SC Last administered on 01/05/19at 12:30; Admin Dose 40 MG; Start 01/04/19 at 12:00 Oxycodone/ Acetaminophen (Endocet (10/ 325)) 1 tab Q4H PRN PO MODERATE PAIN LEVEL 4-6 Last administered on 01/05/19at 20:49; Admin Dose 1 TAB; Start 01/04/19 at 20:00 Sodium Chloride 1,000 ml @ 50 mls/hr Q20H IV Last administered on 01/06/19at 00:35; Admin Dose 50 MLS/HR; Start 01/06/19 at 00:00 Meds reviewed: Yes Allergies Coded Allergies: ARB-Angiotensin Receptor Antagonist (Verified Allergy, Severe, ANAPYLAXIS, 01/03/19) ibuprofen (Verified Allergy, Unknown, 08/07/16) latex (Verified Allergy, Unknown, 08/07/16) Allergies Reviewed: Yes Labs/Studies Labs Reviewed: Reviewed by anesthesiologist Result Diagram: 01/06/19 0437 01/06/19 0437 Laboratory Tests 01/06/19 04:37 test: Negative Pre-procedure Exam Last vitals Vital Signs Date Temp Pulse Resp B/P (MAP) Pulse Ox O2 O2 Flow FiO2 Time Delivery Rate 01/06/19 98.6 104 16 125/74 96 Room Air 14:02 (91) Airway: Adequate mouth opening Mallampati: Mallampati II Teeth: Normal Lung: Normal Heart: Normal ASA Physical Status ASA physical status: 2 Emergency: None Planned Anesthetic General/MAC: ETT Pre-operative Attestations Prior to commencing anesthesia and surgery, the patient was re-evaluated, there was verification of: *The patient's identity *The results of appropriate recent lab work and preoperative vital signs *The above evaluation not changing prior to induction *Anesthetic plan, risk benefits, alternative and complications discussed with patient/family; questions answered; patient/family understands, accepts and wishes to proceed. LORAINE DICKSON MD Jan 06, 2019 15:23
[2019-01-06] MEDS ORDERED: SUCCINYLCHOLINE CHLORIDE 100 MG/5 ML SYG IV ONE (15:29)
[2019-01-06] MEDS ORDERED: ROCURONIUM 50 MG INJ ONE (15:29)
[2019-01-06] MEDS ORDERED: PROPOFOL 20 ML ONE (15:29)
[2019-01-06] MEDS ORDERED: CEFAZOLIN 1 GM INJ ONE (15:29)
[2019-01-06] MEDS ORDERED: ONDANSETRON 4 MG INJ ONE (15:30)
[2019-01-06] MEDS ORDERED: MIDAZOLAM 1 MG/ML 2 ML INJ ONE (15:30)
[2019-01-06] MEDS ORDERED: ONDANSETRON 4 MG INJ IV PRN (17:00)
[2019-01-06] MEDS ORDERED: FENTAnyl 50 MCG/ML VIAL IV PRN (17:00)
[2019-01-06] MEDS ORDERED: HYDROmorphONE 1 MG/5 ML IV SYRINGE IV PRN (17:00)
[2019-01-06] MEDS ORDERED: FENTAnyl 50 MCG/ML VIAL ONE (19:25)
[2019-01-06] MEDS ORDERED: LABETALOL HCL 20MG INJ ONE (19:31)
--- NOTE | 2019-01-06 20:05 | PAC ---
Date/Time of Note Date/Time of Note DATE: 01/06/19 TIME: 20:05 Post-Anesthesia Notes Post-Anesthesia Note Last documented vital signs Vital Signs Date Temp Pulse Resp B/P (MAP) Pulse Ox O2 O2 Flow FiO2 Time Delivery Rate 01/06/19 98.6 104 16 125/74 96 Room Air 14:02 (91) Activity: WNL Respiratory function: WNL Cardiovascular function: WNL Mental status: Baseline Pain reasonably controlled: Yes Hydration appropriate: Yes Nausea/Vomiting absent: Yes LORAINE DICKSON MD Jan 06, 2019 20:05
[2019-01-06] MEDS: HYDROmorphONE 1 MG/5 ML IV SYRINGE IV PRN ×2 (20:23→20:43)
[2019-01-06] MEDS ORDERED: SOD CHLORIDE 0.9% 1,000 ML IV SCH ×2 (20:24)
[2019-01-06] MEDS ORDERED: NACL 0.9% 3 ML SYG IV SCH (20:30)
--- NOTE | 2019-01-06 20:59 | SIPON ---
Date/Time of Note Date/Time of Note DATE: 01/06/19 TIME: 20:47 Operative Report Preoperative Diagnosis tibial plateou fracture of Rt. knee Postoperative Diagnosis same Operation/Procedure Performed O.R.I.F. of tibial plateau fracture of Rt. 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
[2019-01-06] MEDS: ATORVASTATIN 10 MG TAB PO SCH (21:00)
[2019-01-06] MEDS ORDERED: CEFAZOLIN 2 GM/50 ML (PMX) 50 ML IVPB SCH (22:00)
[2019-01-06] MEDS: morphine 2 MG INJ IV PRN (23:20)
[2019-01-06] MEDS: CEFAZOLIN 2 GM/50 ML (PMX) 50 ML IVPB SCH (23:51)
--- NOTE | 2019-01-07 02:13 | OPR ---
DATE OF OPERATION: 01/06/2019 PREOPERATIVE DIAGNOSIS: The tibial plateau fracture of the right knee. POSTOPERATIVE DIAGNOSIS: Tibial plateau fracture of the right knee. PROCEDURE PERFORMED: Open reduction and internal fixation of the tibial plateau fracture of the righ t knee with bone grafting. ANESTHESIA: General anesthesia. SURGEON: Angélica Esquivel MD PROCEDURE AND FINDINGS: Under general anesthesia, the patient was placed in supine position. A tour niquet was placed over the proximal portion of the right thigh and was inflated up to 300 mmHg prior to the procedure. Usual prep and drape was done exposing the right knee. Right knee joint and proxi mal right tibia was approached through the longitudinal midline incision. This incision was extended as long as needed as the procedure is advancing. The proximal tibia and tibial plateau and intraarti cular aspect of the proximal tibia was exposed and exploration revealed the following: There was an extensive fracture involving both medial and lateral tibial plateau with extension to proximal tibia. There was rather unusual depression of the tibial plateau in the intercondylar area with a defect c reated. There was a meniscal tear in the anterior aspect of the lateral tibia following the procedur es were carried out. First, the area was exposed by blunt and sharp dissection and the fractures wer e aligned as best it can be. The depressed bone fragments were raised as much as possible through th e arthrotomy and then bone graft was carried out using cancellous bone chips combined with the infusi on type of bone graft after achieving as best alignment as possible. Internal fixation of the tibial plateau and proximal tibia was carried out using triple length plate and screws. At the end of the procedure, the overall alignment was satisfactory and the position of the fixation device was proper. Torn lateral meniscus was repaired and further closure was carried out using 2-0 Vicryl for synoviu m, 0 Vicryl for muscle and fascia and 2-0 Vicryl for subcutaneous tissues. Final skin closure was ca rried out with skin kelsey. The usual sterile pressure dressings were applied. The patient tolerat ed the entire procedure very well and was sent to the recovery room in excellent condition. Dictated By: ANGÉLICA ESQUIVEL MD IK/NTS Conf#: [id number] DID#: [id number] CC: LALA PEREZ MD;*EndCC*
[2019-01-07] MEDS: oxyCODONE 5 MG TAB PO PRN ×5 (02:17→18:06)
[2019-01-07 02:59] VITALS: BP 128/79; PULSE 120; RESP 18
[2019-01-07] MEDS: morphine 2 MG INJ IV PRN ×4 (04:58→20:16)
[2019-01-07] MEDS: CEFAZOLIN 2 GM/50 ML (PMX) 50 ML IVPB SCH ×2 (06:50→14:29)
[2019-01-07 07:42] VITALS: BP 123/69; PULSE 80; RESP 18
[2019-01-07] MEDS: NICOTINE (21 MG/24 HR) PATCH TRANSDERM SCH (09:12)
[2019-01-07] MEDS: AMLODIPINE 5 MG TAB PO SCH (09:13)
[2019-01-07] MEDS: ENOXAPARIN 40 MG/0.4 ML SYG SC SCH (09:14)
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
[2019-01-07 14:00] VITALS: BP 130/74; PULSE 94; RESP 18
--- NOTE | 2019-01-07 17:12 | RADRPT ---
Vent Rate: 99 bpm RR Interval: 608 msec LA Interval: 199 msec QRS Duration: 90 msec QT Interval: 376 msec QTC Interval: 482 msec P-R-T [place]: 55 - 41 - 56 degrees Sinus rhythm...normal P axis, V-rate 50- 99 Borderline prolonged LA interval...LA >197, V-rate 91-120 Electronically Signed By: Bolivar Barkley
[2019-01-07] MEDS ORDERED: POLYETHYLENE GLYCOL 17 GM PACKET PO ONE (19:00)
[2019-01-07 19:25] VITALS: BP 122/76; PULSE 118; RESP 18
[2019-01-07] MEDS: ATORVASTATIN 10 MG TAB PO SCH (20:16)
[2019-01-07] MEDS: OXYCODONE/ACETAMINOPHEN (10/325) TAB PO PRN (23:05)
[2019-01-08] MEDS ORDERED: VANCOMYCIN IV PER PHARMACY XX SCH
[2019-01-08] MEDS: PIPER-TAZO 3.375 GM IV (PMX) 100 ML IVPB SCH ×5 (00:21→23:26)
[2019-01-08 00:43] VITALS: BP 112/55; PULSE 112; RESP 18
[2019-01-08] MEDS ORDERED: VANCOMYCIN HCL 1.75 GM in SOD CHLORIDE 0.9% 500 ML IVPB ONE (01:00)
[2019-01-08 04:00] VITALS: BP 119/54; PULSE 89; RESP 17
[2019-01-08 07:00] VITALS: BP 124/60; PULSE 92; RESP 18
[2019-01-08] MEDS: OXYCODONE/ACETAMINOPHEN (10/325) TAB PO PRN ×3 (08:17→16:06)
[2019-01-08] MEDS: NICOTINE (21 MG/24 HR) PATCH TRANSDERM SCH (08:18)
[2019-01-08] MEDS: AMLODIPINE 5 MG TAB PO SCH (08:18)
[2019-01-08] MEDS: ENOXAPARIN 40 MG/0.4 ML SYG SC SCH (08:20)
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
[2019-01-08] MEDS ORDERED: SOD CHLORIDE 0.9% 500 ML IV ONE (09:30)
[2019-01-08] MEDS: HYDROmorphONE 1 MG/ML SYG IV PRN ×2 (11:05→23:26)
[2019-01-08 14:24] VITALS: BP 126/62; PULSE 90; RESP 18
[2019-01-08] MEDS: VANCOMYCIN HCL 1.25 GM in SOD CHLORIDE 0.9% 250 ML IVPB SCH (14:24)
[2019-01-08] MEDS: oxyCODONE 5 MG TAB PO PRN ×2 (14:35→19:18)
[2019-01-08 19:25] VITALS: BP 134/75; PULSE 112; RESP 20
[2019-01-08] MEDS: ATORVASTATIN 10 MG TAB PO SCH (20:37)
[2019-01-08] MEDS: morphine 2 MG INJ IV PRN (22:10)
[2019-01-09] MEDS: VANCOMYCIN HCL 1.25 GM in SOD CHLORIDE 0.9% 250 ML IVPB SCH (01:13)
[2019-01-09] MEDS: BISACODYL (EC) 5 MG TAB PO SCH ×2 (01:14→09:00)
[2019-01-09] MEDS: OXYCODONE/ACETAMINOPHEN (10/325) TAB PO PRN ×4 (01:14→19:52)
[2019-01-09 01:15] VITALS: BP 127/69; PULSE 114; RESP 20
[2019-01-09] MEDS: PIPER-TAZO 3.375 GM IV (PMX) 100 ML IVPB SCH (07:00)
[2019-01-09 07:35] VITALS: BP 128/81; PULSE 104; RESP 20
[2019-01-09 07:42] VITALS: BP 140/67; PULSE 75; RESP 18
[2019-01-09] MEDS: NICOTINE (21 MG/24 HR) PATCH TRANSDERM SCH (09:20)
[2019-01-09] MEDS: AMLODIPINE 5 MG TAB PO SCH (09:20)
[2019-01-09] MEDS: ENOXAPARIN 40 MG/0.4 ML SYG SC SCH (09:28)
[2019-01-09] MEDS ORDERED: KETOROLAC 15 MG INJ IV PRN (09:30)
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
[2019-01-09] MEDS: oxyCODONE 5 MG TAB PO PRN ×2 (13:18→18:23)
[2019-01-09 14:24] VITALS: BP 121/78; PULSE 97; RESP 20
[2019-01-09] MEDS: ATORVASTATIN 10 MG TAB PO SCH (19:52)
[2019-01-09 20:00] VITALS: BP 129/73; PULSE 113; RESP 18
[2019-01-09] MEDS ORDERED: traZODone 50 MG TAB PO SCH (21:10)
[2019-01-10 02:00] VITALS: BP 121/67; PULSE 110; RESP 18
[2019-01-10 07:36] VITALS: BP 126/80; PULSE 106; RESP 18
[2019-01-10] MEDS: OXYCODONE/ACETAMINOPHEN (10/325) TAB PO PRN ×3 (08:34→21:04)
[2019-01-10] MEDS: BISACODYL (EC) 5 MG TAB PO SCH (08:35)
[2019-01-10] MEDS: AMLODIPINE 5 MG TAB PO SCH (08:36)
[2019-01-10] MEDS: ENOXAPARIN 40 MG/0.4 ML SYG SC SCH (08:42)
[2019-01-10] MEDS: NICOTINE (21 MG/24 HR) PATCH TRANSDERM SCH (08:46)
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
[2019-01-10] MEDS: oxyCODONE 5 MG TAB PO PRN ×2 (11:20→23:54)
[2019-01-10 14:00] VITALS: BP 120/78; PULSE 108; RESP 18
[2019-01-10] MEDS ORDERED: TIOT18CA INHALATION (14:53)
[2019-01-10] MEDS ORDERED: ALPR1TAB7 PO (17:21)
[2019-01-10] MEDS ORDERED: OLAN15TA7 PO (17:21)
[2019-01-10] MEDS ORDERED: FURO40TA4 PO (17:21)
[2019-01-10] MEDS ORDERED: TRAM50TA2 PO (17:21)
[2019-01-10] MEDS ORDERED: MONT10TA21 PO (17:21)
[2019-01-10] MEDS ORDERED: FLUO60TA PO (17:21)
[2019-01-10] MEDS ORDERED: ZOLP5TAB7 PO (17:21)
[2019-01-10] MEDS ORDERED: POTA8TAB46 PO (17:21)
[2019-01-10 19:15] VITALS: BP 127/69; PULSE 100; RESP 18
[2019-01-10] MEDS ORDERED: ALPRAZOLAM 0.5 MG TAB PO PRN (20:00)
[2019-01-10] MEDS ORDERED: FUROSEMIDE 20 MG TAB PO ONE (20:00)
[2019-01-10] MEDS: FISH OIL 1,000 MG CAP PO SCH (21:00)
[2019-01-10] MEDS: MONTELUKAST 10 MG TAB PO SCH (21:55)
[2019-01-10] MEDS: TIOTROPIUM 18 MCG CAPSULE INHA DEV INH SCH (21:55)
[2019-01-11 01:40] VITALS: BP 131/77; PULSE 99; RESP 16
[2019-01-11] MEDS: OXYCODONE/ACETAMINOPHEN (10/325) TAB PO PRN ×3 (01:49→09:47)
[2019-01-11 07:13] VITALS: BP 112/66; PULSE 90; RESP 18
--- NOTE | 2019-01-11 08:25 | PN ---
DATE: 01/10/2019 SUBJECTIVE: First postop day, afebrile with stable vital signs. H and H is 9.2/28.0. Fairly comfor table with the right lower extremity in a long leg brace. Still has considerable swelling. Has been up with walker without any weightbearing on right lower extremity. She can be discharged from ortho point with the proper arrangement for visiting nurse and visiting PT. She should be seen as an outp atient in ortho office in about 10 days for further followup. Dictated By: ANGÉLICA ESQUIVEL MD IK/NTS Conf#: [id number] DID#: [id number] CC: LALA PEREZ MD;*EndCC*
[2019-01-11] MEDS: FISH OIL 1,000 MG CAP PO SCH ×2 (08:34→20:51)
[2019-01-11] MEDS: BISACODYL (EC) 5 MG TAB PO SCH (08:34)
[2019-01-11] MEDS: FUROSEMIDE 40 MG TAB PO SCH ×2 (08:37→11:40)
[2019-01-11] MEDS: AMLODIPINE 5 MG TAB PO SCH (08:37)
[2019-01-11] MEDS: OLANZAPINE 5 MG TAB PO SCH (08:38)
[2019-01-11] MEDS: FLUOXETINE 20 MG CAP PO SCH (08:38)
[2019-01-11] MEDS: oxyCODONE 5 MG TAB PO PRN (08:38)
[2019-01-11] MEDS: ENOXAPARIN 40 MG/0.4 ML SYG SC SCH (08:43)
[2019-01-11] MEDS: TIOTROPIUM 18 MCG CAPSULE INHA DEV INH SCH (08:47)
[2019-01-11] MEDS: NICOTINE (21 MG/24 HR) PATCH TRANSDERM SCH (08:47)
[2019-01-11] MEDS ORDERED: FLUOXETINE HCL 20 MG PO SCH (09:00)
[2019-01-11] MEDS: HYDROmorphONE 1 MG/ML SYG IV PRN (09:22)
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
[2019-01-11] MEDS ORDERED: traMADol 50 MG TAB PO SCH (13:00)
[2019-01-11 14:35] VITALS: BP 128/96; PULSE 78; RESP 18
[2019-01-11] MEDS: traMADol 50 MG TAB PO SCH ×2 (18:19→20:50)
[2019-01-11 19:15] VITALS: BP 114/76; PULSE 107; RESP 18
[2019-01-11] MEDS ORDERED: ALPRAZOLAM 1 MG TAB PO PRN (20:00)
[2019-01-11] MEDS: MONTELUKAST 10 MG TAB PO SCH (20:50)
[2019-01-12 02:01] VITALS: BP 115/65; PULSE 102; RESP 18
[2019-01-12] MEDS ORDERED: HYDROCODONE/APAP (5/325) TAB PO ONE (07:00)
[2019-01-12 08:17] VITALS: BP 129/80; PULSE 94; RESP 19
[2019-01-12] MEDS: TIOTROPIUM 18 MCG CAPSULE INHA DEV INH SCH (08:58)
[2019-01-12] MEDS: FISH OIL 1,000 MG CAP PO SCH (08:59)
[2019-01-12] MEDS: BISACODYL (EC) 5 MG TAB PO SCH (08:59)
[2019-01-12] MEDS: FLUOXETINE 20 MG CAP PO SCH (09:00)
[2019-01-12] MEDS: AMLODIPINE 5 MG TAB PO SCH (09:00)
[2019-01-12] MEDS: OLANZAPINE 5 MG TAB PO SCH (09:00)
[2019-01-12] MEDS: FUROSEMIDE 40 MG TAB PO SCH (09:01)
[2019-01-12] MEDS: traMADol 50 MG TAB PO SCH (09:01)
[2019-01-12] MEDS: NICOTINE (21 MG/24 HR) PATCH TRANSDERM SCH (09:02)
[2019-01-12] MEDS: ENOXAPARIN 40 MG/0.4 ML SYG SC SCH (09:24)
[2019-01-12] MEDS ORDERED: HYDROCODONE/APAP (5/325) TAB PO PRN (10:00)
[2019-01-12] MEDS ORDERED: HYDROCODONE/APAP (10/325) TAB PO PRN (10:00)
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
--- NOTE | 2019-01-12 10:07 | PDOCDIS ---
Discharge Instructions DIAGNOSIS Discharge Diagnosis Tibial plateau fracture of the right knee. -s/p ORIF 01/06 Dyslipidemia Essential hypertension Subclinical hypothyroidism Obesity with a BMI 33.0 Anemia Post op atelectasis Anxiety disorders CONDITION [id number] Patient Condition: [id number] Stable HOME CARE INSTRUCTIONS: [id number] Diet Instructions: [id number] Low Fat /Cholesterol ACTIVITY: [id number] Activity Restrictions: [id number] Slowly Increase Activity Rest between Activity Avoid heavy lifting Do not Drive Avoid Heavy Housework [id number] Bathing Restrictions: [id number] Tub Bath FOLLOW UP/APPOINTMENTS Follow-up Plan Follow up with in 10 days Name, Degree Ellen, In MD [facility] Comments Office Address [address] [place] [address] Office Office [employer] Hilda Pulido Follow-up with primary care physician in 1 week MENDEZ DEGROOT NP Jan 12, 2019 10:07
[2019-01-12] MEDS ORDERED: HYDR-3601 PO (10:11)
[2019-01-12] MEDS ORDERED: ASPI-831 PO (10:11)
[2019-01-12] MEDS ORDERED: OMEG100024 PO (10:11)
[2019-01-12] MEDS ORDERED: ASPIRIN 81 MG TAB PO SCH (11:00)
[2019-01-12] MEDS ORDERED: PANTOPRAZOLE (EC) 40 MG TAB PO SCH (18:00)
== END 2019-01-12 12:15 | disposition home or self-care (01) | DRG 493 ==
LOC: E/R 17:16 → MS1 18:27
PROVIDERS: ADMIT Internal Medicine; ATTEND Internal Medicine
PROC: 0QUG0JZ Supplement Right Tibia with Synthetic Substitute, Open Approach (ICD-10-PCS; 2019-01-06)
PROC: 0QSG04Z Reposition Right Tibia with Internal Fixation Device, Open Approach (ICD-10-PCS; principal; 2019-01-06 15:00)
DX: S82.251A Displaced comminuted fracture of shaft of right tibia, initial encounter for closed fracture (principal); J98.11 Atelectasis; J95.89 Other postprocedural complications and disorders of respiratory system, not elsewhere classified; E02 Subclinical iodine-deficiency hypothyroidism; I10 Essential (primary) hypertension; J44.9 Chronic obstructive pulmonary disease, unspecified; E78.5 Hyperlipidemia, unspecified; E66.9 Obesity, unspecified; Z68.33 Body mass index [BMI] 33.0-33.9, adult; D64.9 Anemia, unspecified; F41.9 Anxiety disorder, unspecified; R50.9 Fever, unspecified
CPT/HCPCS: 36415; 71045; 73560; 73562; 73590; 73700; 80048; 80053; 80061; 81001; 83036; 83605; 83735; 84439; 84443; 84703; 85025; 85610; 85730; 87086; 93005; 93306; 93971; 96374; 96375; 97110; 97116; 97162; 97530; C1713; J0690; J1170; J1650; J1885; J2250; J2270; J2405; J2543; J3010; J3370; J7030; J7040; J7050; L1832